=== PATIENT | male | born 1990 | race African-American/Black ===

== ENCOUNTER 2019-04-05 18:28 | Emergency (ER) | payer MEDICAID ==
[2019-04-05] MEDS: DEXAMETHASONE 10 MG/ML 1 ML INJ IM (19:23)
[2019-04-05] MEDS: PROMETHAZINE/CODEINE 5ML CUP PO (19:29)
[2019-04-05] MEDS: ALBUTEROL 0.083% (NEB) 2.5 MG/3 ML AMP HHN ×2 (19:35→20:54)
[2019-04-05] MEDS: IPRATROPIUM (NEB) 0.5 MG/2.5 ML AMP HHN (19:37)
== END 2019-04-05 21:20 | disposition home or self-care (01) ==
LOC: FTE 18:28
DX: J30.9 Allergic rhinitis, unspecified (principal); J45.901 Unspecified asthma with (acute) exacerbation
CPT/HCPCS: 94640; 94664; 96372; 99285-25